=== PATIENT | female | born 2000 | race African-American/Black ===

== ENCOUNTER 2023-07-01 20:17 | Emergency (ER) | payer OTHER ==
[2023-07-01 20:23] VITALS: RESP 18; TEMP 99; BMI 34.3
[2023-07-01] MEDS ORDERED: ACETAMINOPHEN 325 MG TABLET (FP) ONE (22:23)
[2023-07-01] MEDS: ACETAMINOPHEN 500 MG TABLET (FP) PO ONE (22:29)
[2023-07-01] MEDS ORDERED: IBUPROFEN 400 MG TABLET (FP) PO ONE (23:03)
[2023-07-01] MEDS: IBUPROFEN 400 MG TABLET (FP) PO ONE (23:05)
[2023-07-02] MEDS: PENICILLIN G BENZATHINE 1,200,000 UNIT/2 ML PFS IM ONE (00:40)
[2023-07-02 00:42] VITALS: BP 120/70; PULSE 116
== END 2023-07-02 00:45 | disposition home or self-care (01) ==
LOC: JER 20:17
DX: R10.84 Generalized abdominal pain (principal); R11.0 Nausea; R19.7 Diarrhea, unspecified; J02.0 Streptococcal pharyngitis; R51.9 Headache, unspecified; R50.9 Fever, unspecified; Z20.822 Contact with and (suspected) exposure to COVID-19
CPT/HCPCS: 0241U-QW; 87651; 99284-25

== ENCOUNTER 2024-02-07 18:01 | Emergency (ER) | payer OTHER ==
[2024-02-07 18:16] VITALS: BP 129/84; PULSE 86; RESP 20; TEMP 97.8; BMI 35.6
== END 2024-02-07 20:15 | disposition home or self-care (01) ==
LOC: JERFT 18:01
DX: J40 Bronchitis, not specified as acute or chronic (principal); J06.9 Acute upper respiratory infection, unspecified; R05.9 Cough, unspecified; R07.89 Other chest pain; Z20.822 Contact with and (suspected) exposure to COVID-19
CPT/HCPCS: 0241U-QW; 71046-TC-FY; 99284-25

== ENCOUNTER 2024-05-03 10:45 | Emergency (ER) | payer OTHER ==
[2024-05-03 11:28] VITALS: BP 136/99; PULSE 83; RESP 18; TEMP 97.9; BMI 35.6
[2024-05-03] MEDS ORDERED: MONTELUKAST NA 5 MG TAB.CHEW PO ONE (12:53)
== END 2024-05-03 13:05 | disposition home or self-care (01) ==
LOC: JERFT 10:45
DX: J40 Bronchitis, not specified as acute or chronic (principal); R05.9 Cough, unspecified; R09.89 Other specified symptoms and signs involving the circulatory and respiratory systems; Z20.822 Contact with and (suspected) exposure to COVID-19
CPT/HCPCS: 0241U-QW; 71046-TC-FY; 99284-25

== ENCOUNTER 2024-07-19 10:46 | Emergency (ER) | payer OTHER ==
[2024-07-19 11:33] VITALS: BP 121/93; PULSE 86; RESP 20; TEMP 98.6; BMI 35.5
== END 2024-07-19 12:25 | disposition home or self-care (01) ==
LOC: JERFT 10:46
DX: J10.1 Influenza due to other identified influenza virus with other respiratory manifestations (principal); R05.9 Cough, unspecified; R09.81 Nasal congestion; M79.10 Myalgia, unspecified site
CPT/HCPCS: 0241U-QW; 87651; 99283-25